=== PATIENT | female | born 1980 | race Caucasian/White ===

== ENCOUNTER → 2024-02-21 16:51 | Outpatient (REF) | payer OTHER, SELFPAY | LOC: WDC 16:51 | PROVIDERS: ATTENDING PHYSICIAN Obstetrics & Gynecology; FAMILY PHYSICIAN Family Medicine | DX: Z12.31 Encounter for screening mammogram for malignant neoplasm of breast (principal) | CPT/HCPCS: 77063; 77067 ==

== ENCOUNTER → 2024-02-28 08:49 | Outpatient (REF) | payer OTHER, SELFPAY | LOC: WDC 08:49 | PROVIDERS: ATTENDING PHYSICIAN Obstetrics & Gynecology; FAMILY PHYSICIAN Family Medicine | DX: R92.8 Other abnormal and inconclusive findings on diagnostic imaging of breast (principal) | CPT/HCPCS: 76642 ==

== ENCOUNTER → 2025-02-26 09:00 | Outpatient (REF) | payer OTHER, SELFPAY | LOC: WDC 09:00 | PROVIDERS: ATTENDING PHYSICIAN Obstetrics & Gynecology; FAMILY PHYSICIAN Family Medicine | DX: Z12.31 Encounter for screening mammogram for malignant neoplasm of breast (principal) | CPT/HCPCS: 77063; 77067 ==

== ENCOUNTER → 2025-03-06 08:33 | Outpatient (REF) | payer OTHER, SELFPAY | LOC: WDC 08:33 | PROVIDERS: ATTENDING PHYSICIAN Obstetrics & Gynecology; FAMILY PHYSICIAN Family Medicine | DX: R92.8 Other abnormal and inconclusive findings on diagnostic imaging of breast (principal) | CPT/HCPCS: 76642 ==